=== PATIENT | male | born 1945 | race African-American/Black ===

== ENCOUNTER 2018-09-01 14:24 | Emergency (ER) | payer MEDICARE ==
[~2018-09-01] VITALS: Ht 182.9 cm; Wt 113.4 kg
[2018-09-01] MEDS ORDERED: cloNIDine HCL 0.1 MG TAB PO ONE (14:45)
[2018-09-01 15:09] LABS: Basophils # (auto) 0 uL; Basophils % (auto) 0.5 % (0.0-2.0); Eosinophils # (auto) 0.1 uL; Eosinophils % (auto) 2.1 % (0.0-7.0); Hematocrit 49.2 % (41.0-53.0); Hemoglobin 16.6 g/dL (13.5-17.5); Lymphocytes % (auto) 31.2 % (10.0-50.0); Mean Corpuscular Hemoglobin 29.5 pg (28.0-32.0); Mean Corpuscular Hgb Conc. 33.8 g/dL (32.0-36.0); Mean Corpuscular Volume 87.3 fL (80.0-100.0); Monocytes # (auto) 0.6 uL; Neutrophils # (auto) 3.6 uL; Neutrophils % (auto) 57.2 % (37.0-80.0); Nucleated Red Blood Cells % 0.3 %; Platelet Count (auto) 166 10^3/uL (140-450); Red Blood Cells 5.63 10^6/uL (4.5-5.90); Red Cell Distribution Width 14.1 % (11.8-14.3); White Blood Cell 6.3 10^3/uL (4.4-10.8)
[2018-09-01 15:28] LABS: Albumin 3.6 g/dL (3.4-5.0); BUN/Creatinine Ratio 10.9; Calcium 9.2 mg/dL (8.5-10.1); Potassium 4.1 mmol/L (3.5-5.1)
[2018-09-01 15:30] LABS: Bilirubin, Total 0.8 mg/dL (0.2-1.0); Total Protein 8.3 g/dL (6.4-8.2)
[2018-09-01 16:43] VITALS: BP 143/88
== END 2018-09-01 16:48 | disposition home or self-care (01) ==
LOC: ER 14:24
DX: I16.0 Hypertensive urgency (principal); Z88.0 Allergy status to penicillin; Z88.8 Allergy status to other drugs, medicaments and biological substances
CPT/HCPCS: 36415; 80053; 82962; 85025; 93005

== ENCOUNTER 2023-08-20 23:34 | Inpatient (IN) | payer MEDICARE, OTHER ==
[~2023-08-20] VITALS: Ht 182.9 cm; Wt 120.0 kg
[2023-08-20 23:58] LABS: Basophils # (auto) 0.1 10 ^3/uL (0-0.2); Basophils % (auto) 0.6 % (0.0-2.0); Eosinophils # (auto) 0.2 10 ^3/uL (0-0.8); Eosinophils % (auto) 1.9 % (0.0-7.0); Lymphocytes # (auto) 3.2 10 ^3/uL (0.4-5.4); Lymphocytes % (auto) 32.1 % (10.0-50.0); Mean Corpuscular Hemoglobin 29.4 pg (28.0-32.0); Mean Corpuscular Hgb Conc. 33.3 g/dL (32.0-36.0); Mean Corpuscular Volume 88.1 fL (80.0-100.0); Monocytes # (auto) 0.7 10 ^3/uL (0-1.3); Monocytes % (auto) 7.4 % (0.0-12.0); Neutrophils # (auto) 5.8 10 ^3/uL (1.6-8.6); Nucleated Red Blood Cells % 0.1 %; Red Blood Cells 5.45 10^6/uL (4.5-5.90); White Blood Cell 10.1 10^3/uL (4.4-10.8)
[2023-08-21] VITALS (8 sets, daily range): BP systolic 134–145; BP diastolic 69–80; PULSE 53–81; RESP 15–20; TEMP 36.8; O2SAT 95–99
[2023-08-21 00:13] LABS: Alanine Aminotransferase 63 U/L (7-40); Albumin 4.3 g/dL (3.2-4.8); Alkaline Phosphatase 88 U/L (46-116); Anion Gap 7 (5-15); Aspartate Aminotransferase 31 U/L (13-40); BUN/Creatinine Ratio 15.5 (10.0-20.0); Bilirubin, Total 0.8 mg/dL (0.2-1.0); Blood Urea Nitrogen 16 mg/dL (9-23); Calcium 10.1 mg/dL (8.7-10.4); Carbon Dioxide 28 mmol/L (20-30); Chloride 104 mmol/L (98-107); Glucose 95 mg/dL (74-106); Potassium 4.1 mmol/L (3.5-5.1); Sodium 139 mmol/L (136-145); Total Protein 7.5 g/dL (5.7-8.2)
[2023-08-21 00:16] LABS: INR 1.15 (0.9-1.15); Partial Thromboplastin Time 37.7 SEC (24.5-34.5)
[2023-08-21] MEDS ORDERED: ONDANSETRON HCL 4 MG/2 ML VIAL IV PRN (03:15)
[2023-08-21] MEDS ORDERED: NITROGLYCERIN 0.4 MG SL TAB SL PRN (03:15)
[2023-08-21] MEDS ORDERED: MORPHINE SULFATE INJ 2 MG/ml SYRG IV PRN (03:15)
[2023-08-21] MEDS: IOHEXOL 350 MG/ML 100ML IJ ONE (03:37)
[2023-08-21 03:45] LABS: Triglycerides 94 mg/dL (< 150)
[2023-08-21 03:46] LABS: LDL Cholesterol 77 mg/dL (< 100)
[2023-08-21 03:47] LABS: Cholesterol 144 mg/dL (< 200); HDL Cholesterol 52 mg/dL (40-59)
[2023-08-21] MEDS: ASPirin 81 mg TAB PO ONE (03:49)
[2023-08-21 07:25] LABS: Urine Bacteria FEW /hpf (None Seen); Urine Blood Negative /uL (Negative); Urine Clarity Clear (Clear); Urine Protein, UAD Negative (Negative); Urine Urobilinogen Normal (Negative); Urine WBC 8 /hpf (0 - 3)
[2023-08-21 07:52] LABS: Urine Color Straw (Yellow); Urine Specific Gravity > 1.050 (1.001-1.035)
[2023-08-21] MEDS: ENOXAPARIN SOD 40 MG/0.4 ML SYRINGE SC SCH (10:00)
[2023-08-21] MEDS: ASPirin 81 mg TAB PO SCH (10:20)
[2023-08-21] MEDS: amLODIPine BESYLATE 5 MG TAB PO SCH (10:20)
[2023-08-21] MEDS: LOSARTAN POTASSIUM 50 MG TAB PO SCH (10:21)
[2023-08-21] MEDS ORDERED: ATOR20TA PO (10:31)
[2023-08-21] MEDS ORDERED: SPIR25TA8 PO (10:32)
[2023-08-21] MEDS ORDERED: AMLO1TAB23 PO (10:33)
[2023-08-21] MEDS ORDERED: LOSA100T58 PO (10:36)
[2023-08-21] MEDS: ATORVASTATIN 20 MG TAB PO SCH (22:01)
[2023-08-22 01:00] VITALS: BP 121/68; PULSE 71; RESP 20; TEMP 98.2; O2SAT 96
[2023-08-22 05:00] VITALS: BP 134/73; PULSE 66; RESP 18; TEMP 98.3; O2SAT 94
[2023-08-22 06:20] LABS: Chloride 106 mmol/L (98-107); Potassium 3.8 mmol/L (3.5-5.1)
[2023-08-22 06:21] LABS: Sodium 138 mmol/L (136-145)
[2023-08-22 06:22] LABS: Anion Gap 7 (5-15); Calcium 9.3 mg/dL (8.5-10.1); Carbon Dioxide 25 mmol/L (20-30)
[2023-08-22 06:27] LABS: BUN/Creatinine Ratio 11.3 (10.0-20.0); Blood Urea Nitrogen 11 mg/dL (9-23); Glucose 100 mg/dL (74-106)
[2023-08-22 08:00] VITALS: PULSE 61
[2023-08-22 09:00] VITALS: BP 131/73; PULSE 65; RESP 16; TEMP 98.1; O2SAT 98
== END 2023-08-22 13:12 | disposition home or self-care (01) | DRG 305 ==
LOC: ER 23:34 → TELE 08-21 03:14 → TELE-WESTW 08-21 08:55
PROVIDERS: ADMIT Nurse Practitioner; ATTEND Nurse Practitioner Acute Care
DX: I16.0 Hypertensive urgency (principal); E66.01 Morbid (severe) obesity due to excess calories; E78.5 Hyperlipidemia, unspecified; I25.10 Atherosclerotic heart disease of native coronary artery without angina pectoris; Z88.0 Allergy status to penicillin; Z88.8 Allergy status to other drugs, medicaments and biological substances; Z82.49 Family history of ischemic heart disease and other diseases of the circulatory system; Z80.1 Family history of malignant neoplasm of trachea, bronchus and lung; Z68.33 Body mass index [BMI] 33.0-33.9, adult
CPT/HCPCS: 36415; 70450; 71045; 71275; 80048; 80053; 80061; 81001; 83605; 83880; 84484; 85025; 85379; 85610; 85730; 87040; 87077; 93005; 93306; G0378